=== PATIENT | male | born 1975 | race Two or more races ===

== ENCOUNTER 2022-08-25 10:55 | Emergency (ER) | payer OTHER ==
[~2022-08-25] VITALS: Ht 190.5 cm; Wt 122.0 kg
--- NOTE | 2022-08-25 11:00 | NUR ---
BIB [facility] IN A SITTING POSITION, LEFT FLANK PAIN SINCE YESTERDAY, BLOODY STOOL THIS MORNING. PLACED ON BED, AAOX4, IN PAIN 10/10 PS
[2022-08-25] MEDS ORDERED: ACETAMINOPHEN ES 500 MG TABLET ONE (11:29)
[2022-08-25] MEDS ORDERED: KETOROLAC TROMETHAMINE INJ 30 MG/ML VIAL ONE (11:29)
[2022-08-25] MEDS ORDERED: KETOROLAC TROMETHAMINE INJ 60 MG/2 ML VIAL IM ONE (11:30)
[2022-08-25] MEDS ORDERED: ACETAMINOPHEN ES 500 MG TABLET PO ONE (11:30)
--- NOTE | 2022-08-25 11:45 | NUR ---
GALVANIZER ZINC AT BEDSIDE
[2022-08-25 11:48] LABS: BASOPHILS # (AUTO) 0.1 K/uL (0.0-0.2); BASOPHILS % (AUTO) 0.6 % (0.0-2.0); EOSINOPHILS % (AUTO) 2.3 % (0.0-6.0); HEMATOCRIT 45 % (39-51); HEMOGLOBIN 15.7 g/dL (13.5-17.5); LYMPHOCYTES # (AUTO) 1.2 K/uL (0.8-4.8); LYMPHOCYTES % (AUTO) 13.4 % (20.0-44.0); MEAN CORPUSCULAR HGB CONC 35 g/dl (31.0-36.0); MEAN CORPUSCULAR VOLUME 95 fL (80-96); MONOCYTES # (AUTO) 0.5 K/uL (0.1-1.30); NEUTROPHILS # (AUTO) 7.2 K/uL (1.8-8.9); NEUTROPHILS % (AUTO) 78.7 % (43.0-81.0); PLATELET COUNT (AUTO) 267 K/uL (150-450); RED BLOOD CELL COUNT(AUTO) 4.77 MIL/uL (4.5-6.0); WHITE BLOOD COUNT (AUTO) 9.2 K/uL (4.3-11.0)
[2022-08-25 11:56] LABS: CREATININE 1.2 mg/dL (0.6-1.3); POTASSIUM 3.7 mmol/L (3.5-5.1)
[2022-08-25] MEDS ORDERED: MORPHINE SULFATE INJ 2 MG/ML DISP.SYRIN ONE (11:58)
[2022-08-25] MEDS ORDERED: MORPHINE SULFATE INJ 2 MG/ML DISP.SYRIN IV ONE (12:00)
[2022-08-25 12:02] LABS: ALBUMIN 3.7 g/dL (3.4-5.0); BILIRUBIN,DIRECT 0.2 mg/dL (0.0-0.2); BILIRUBIN,TOTAL 0.8 mg/dL (0.2-1.0); TOTAL PROTEIN, SERUM 7.5 g/dL (6.4-8.2)
--- NOTE | 2022-08-25 12:03 | NUR ---
PATIENT TAKEN TO CT VIA [facility]
[2022-08-25 12:27] LABS: BILIRUBIN,URINE SMALL (NEGATIVE); COLOR,URINE YELLOW (YELLOW); LEUKOCYTE ESTERASE ,URINE NEGATIVE (NEGATIVE); NITRITE, URINE NEGATIVE (NEGATIVE); PROTEIN,URINE TRACE mg/dl (NEGATIVE); UGLUCOSE NEGATIVE (NEGATIVE); UROBILINOGEN,URINE 0.2 EU/dL (0.2)
[2022-08-25 13:33] LABS: BACTERIA,URINE Few /HPF (None Seen); SQUAMOUS EPITHELIAL CELL,UR None Seen /HPF (None Seen); URIC ACID CRYSTALS,URINE Few /HPF (None Seen); URINE AMORPHOUS URATE Many /HPF (None Seen); WBC,URINE NONE SEEN /HPF (0-3)
[2022-08-25] MEDS ORDERED: MAGN296S72 PO (14:33)
[2022-08-25] MEDS ORDERED: HYDR-4303 PO (14:33)
--- NOTE | 2022-08-25 14:35 | NUR ---
IV removed. Catheter intact and site benign. Pressure and 4x4 applied to site. No bleeding noted.Patient discharged to home in stable condition. Written and verbal after care instructions given. Patient verbalizes understanding of instruction.
[2022-08-25 14:36] VITALS: BP 137/82
[2022-08-26] MEDS ORDERED: HYDR-4303 PO (20:53)
[2022-08-26] MEDS ORDERED: ONDA4TAB5 PO (20:53)
== END 2022-08-25 14:35 | disposition home or self-care (01) ==
LOC: ER 11:04
DX: K63.89 Other specified diseases of intestine (principal); I10 Essential (primary) hypertension; Z60.2 Problems related to living alone; Z79.899 Other long term (current) drug therapy
CPT/HCPCS: 99284; 74176; 96374; 85025; 80048; 83690; 80076; 81001; 36415; 96372; J1885; J2270

== ENCOUNTER 2022-08-26 16:15 | Emergency (ER) | payer OTHER ==
[~2022-08-26] VITALS: Ht 190.5 cm; Wt 117.9 kg
[~2022-08-26 16:15] MED LIST: HYDR-4303 PO; MAGN296S72 PO
--- NOTE | 2022-08-26 16:43 | NUR ---
CAME IN FOR PERSISTENT LLQ PAIN, SEEN YESTERDAY FOR SAME COMPLAINT, TO ER BED 9, HOOKED TO MONITOR, CHANGED TO HOSP G[facility], WARM BLANKET PROVIDED, AWAITING MD SUH
--- NOTE | 2022-08-26 17:24 | NUR ---
DR SOLER AT BEDSIDE
[2022-08-26] MEDS ORDERED: ONDANSETRON HCL/PF 4 MG/2 ML VIAL IVP ONE (17:30)
[2022-08-26] MEDS ORDERED: MORPHINE SULFATE INJ 2 MG/ML DISP.SYRIN IV ONE (17:30)
[2022-08-26] MEDS ORDERED: IV NS 0.9% 1,000 ML BAG IV ONE (17:30)
[2022-08-26] MEDS ORDERED: ONDANSETRON HCL/PF 4 MG/2 ML VIAL ONE (17:43)
[2022-08-26] MEDS ORDERED: MORPHINE SULFATE INJ 4 MG/ML DISP.SYRIN ONE (17:44)
--- NOTE | 2022-08-26 18:01 | NUR ---
WHEELED OUT VIA RNEY FOR CT SCAN
[2022-08-26 18:05] LABS: BASOPHILS # (AUTO) 0.1 K/uL (0.0-0.2); BASOPHILS % (AUTO) 1.1 % (0.0-2.0); EOSINOPHILS % (AUTO) 2.2 % (0.0-6.0); HEMATOCRIT 47 % (39-51); HEMOGLOBIN 15.8 g/dL (13.5-17.5); LYMPHOCYTES # (AUTO) 1.5 K/uL (0.8-4.8); LYMPHOCYTES % (AUTO) 13.6 % (20.0-44.0); MEAN CORPUSCULAR HGB CONC 34 g/dl (31.0-36.0); MEAN CORPUSCULAR VOLUME 96 fL (80-96); MONOCYTES # (AUTO) 0.8 K/uL (0.1-1.30); NEUTROPHILS # (AUTO) 8.2 K/uL (1.8-8.9); NEUTROPHILS % (AUTO) 76.1 % (43.0-81.0); PLATELET COUNT (AUTO) 286 K/uL (150-450); RED BLOOD CELL COUNT(AUTO) 4.91 MIL/uL (4.5-6.0); WHITE BLOOD COUNT (AUTO) 10.8 K/uL (4.3-11.0)
[2022-08-26 18:45] LABS: ALBUMIN 3.8 g/dL (3.4-5.0); BILIRUBIN,DIRECT 0.3 mg/dL (0.0-0.2); CALCIUM, SERUM 9.2 mg/dL (8.5-10.1); POTASSIUM 3.4 mmol/L (3.5-5.1); TOTAL PROTEIN, SERUM 7.7 g/dL (6.4-8.2)
[2022-08-26 19:07] LABS: CREATININE 1.2 mg/dL (0.6-1.3)
--- NOTE | 2022-08-26 19:35 | NUR ---
UNABLE TO PROVIDE URINE AT THIS TIME.
[2022-08-26] MEDS ORDERED: KETOROLAC TROMETHAMINE INJ 30 MG/ML VIAL ONE (19:56)
[2022-08-26] MEDS ORDERED: KETOROLAC TROMETHAMINE INJ 30 MG/ML VIAL IV ONE (20:00)
--- NOTE | 2022-08-26 20:06 | NUR ---
URINE COLLECTED AND SENT TO LAB
[2022-08-26 20:21] LABS: BILIRUBIN,URINE NEGATIVE (NEGATIVE); COLOR,URINE YELLOW (YELLOW); LEUKOCYTE ESTERASE ,URINE NEGATIVE (NEGATIVE); NITRITE, URINE NEGATIVE (NEGATIVE); PH,URINE 6.5 (5.0-8.0); PROTEIN,URINE NEGATIVE (NEGATIVE); UGLUCOSE NEGATIVE (NEGATIVE)
[2022-08-26 20:31] LABS: BACTERIA,URINE None seen /HPF (None Seen); RBC,URINE 21-50 /HPF (0-2); WBC,URINE 0-2 /HPF (0-3)
[2022-08-26] MEDS ORDERED: HYDR-4303 PO (20:53)
[2022-08-26] MEDS ORDERED: ONDA4TAB5 PO (20:53)
[2022-08-26 21:07] VITALS: BP 145/90
--- NOTE | 2022-08-26 21:07 | NUR ---
Patient discharged to home in stable condition. Written and verbal after care instructions given. Patient verbalizes understanding of instruction.
== END 2022-08-26 21:08 | disposition home or self-care (01) ==
LOC: ER 16:19
DX: K63.89 Other specified diseases of intestine (principal); I10 Essential (primary) hypertension; Z60.2 Problems related to living alone; Z79.899 Other long term (current) drug therapy
CPT/HCPCS: 99285; 74177; 96374; 96375; 96361; 85025; 80048; 83690; 80076; 81001; 36415; J2270; J1885; J2405; J7030

== ENCOUNTER 2022-12-06 05:10 | Emergency (ER) | payer OTHER ==
[~2022-12-06] VITALS: Ht 190.5 cm; Wt 117.9 kg
[~2022-12-06 05:10] MED LIST changes: +ONDA4TAB5 PO
--- NOTE | 2022-12-06 06:04 | NUR ---
BIBSELF FROM HOME C/O RIGHT FLANK PAIN X 1 HR. PT A/OX4. TOLERATING R/A WELL WITH NO RESP DISTRESS. CONNECTED PT TO POX AND MONITOR. SAFETY MEASURES IN PLACE.
--- NOTE | 2022-12-06 06:05 | NUR ---
URINE COLLECTED AND SENT TO LAB
[2022-12-06] MEDS ORDERED: KETOROLAC TROMETHAMINE 15 MG/ML VIAL ONE (06:23)
[2022-12-06] MEDS ORDERED: ONDANSETRON HCL/PF 4 MG/2 ML VIAL ONE (06:23)
[2022-12-06] MEDS ORDERED: ONDANSETRON HCL/PF 4 MG/2 ML VIAL IVP ONE (06:30)
[2022-12-06] MEDS ORDERED: KETOROLAC TROMETHAMINE INJ 30 MG/ML VIAL IV ONE (06:30)
[2022-12-06] MEDS ORDERED: IV NS 0.9% 1,000 ML BAG IV ONE (06:30)
--- NOTE | 2022-12-06 06:37 | NUR ---
RAC #20G S/L BLOOD COLLECTED AND SENT TO LAB
--- NOTE | 2022-12-06 06:41 | NUR ---
PT TAKEN TO CT VIA [facility]
--- NOTE | 2022-12-06 06:55 | NUR ---
PT RETURNED TO ER BED [address]
[2022-12-06 07:02] LABS: BILIRUBIN,URINE NEGATIVE (NEGATIVE); COLOR,URINE YELLOW (YELLOW); LEUKOCYTE ESTERASE ,URINE NEGATIVE (NEGATIVE); NITRITE, URINE NEGATIVE (NEGATIVE); PH,URINE 5.5 (5.0-8.0); PROTEIN,URINE NEGATIVE (NEGATIVE); UGLUCOSE NEGATIVE (NEGATIVE); UROBILINOGEN,URINE 0.2 EU/dL (0.2)
[2022-12-06 07:17] LABS: CALCIUM, SERUM 9.2 mg/dL (8.5-10.1); CREATININE 0.9 mg/dL (0.6-1.3); POTASSIUM 3.7 mmol/L (3.5-5.1)
[2022-12-06 07:19] LABS: BASOPHILS # (AUTO) 0.1 K/uL (0.0-0.2); BASOPHILS % (AUTO) 0.9 % (0.0-2.0); EOSINOPHILS % (AUTO) 2.4 % (0.0-6.0); HEMATOCRIT 48 % (39-51); HEMOGLOBIN 16.2 g/dL (13.5-17.5); LYMPHOCYTES # (AUTO) 1.9 K/uL (0.8-4.8); LYMPHOCYTES % (AUTO) 17.7 % (20.0-44.0); MEAN CORPUSCULAR HGB CONC 34 g/dl (31.0-36.0); MEAN CORPUSCULAR VOLUME 96 fL (80-96); MONOCYTES % (AUTO) 8.7 % (2.0-12.0); NEUTROPHILS # (AUTO) 7.7 K/uL (1.8-8.9); NEUTROPHILS % (AUTO) 70.3 % (43.0-81.0); PLATELET COUNT (AUTO) 275 K/uL (150-450); RED BLOOD CELL COUNT(AUTO) 5.02 MIL/uL (4.5-6.0); WHITE BLOOD COUNT (AUTO) 10.9 K/uL (4.3-11.0)
[2022-12-06 07:25] LABS: ALBUMIN 3.7 g/dL (3.4-5.0); BILIRUBIN,DIRECT 0.2 mg/dL (0.0-0.2); BILIRUBIN,TOTAL 0.4 mg/dL (0.2-1.0); TOTAL PROTEIN, SERUM 8.3 g/dL (6.4-8.2)
[2022-12-06] MEDS ORDERED: FENTANYL PF 100MCG/2ML AMPUL ONE (07:27)
[2022-12-06] MEDS ORDERED: FENTANYL PF 100MCG/2ML AMPUL IV ONE (07:30)
[2022-12-06 07:47] LABS: BACTERIA,URINE Rare /HPF (None Seen); SQUAMOUS EPITHELIAL CELL,UR Few /HPF (None Seen); WBC,URINE 0-2 /HPF (0-3)
[2022-12-06] MEDS ORDERED: HYDR-4209 PO (08:49)
[2022-12-06] MEDS ORDERED: TAMS-12 PO (08:49)
[2022-12-06] MEDS ORDERED: IBUP-1955 PO (08:49)
[2022-12-06] MEDS ORDERED: ONDA4TAB5 PO (08:49)
[2022-12-06 09:08] VITALS: BP 155/71
--- NOTE | 2022-12-06 09:09 | NUR ---
Patient discharged to home in stable condition. Written and verbal after care instructions given. Patient verbalizes understanding of instruction.IV removed. Catheter intact and site benign. Pressure and 4x4 applied to site. No bleeding noted.
== END 2022-12-06 09:09 | disposition home or self-care (01) ==
LOC: ER 05:13
DX: S22.088A Other fracture of T11-T12 vertebra, initial encounter for closed fracture (principal); N20.0 Calculus of kidney; I10 Essential (primary) hypertension; R10.31 Right lower quadrant pain; R11.2 Nausea with vomiting, unspecified; R31.9 Hematuria, unspecified; K44.9 Diaphragmatic hernia without obstruction or gangrene; K59.00 Constipation, unspecified; E88.89 Other specified metabolic disorders; R74.01 Elevation of levels of liver transaminase levels; Z87.442 Personal history of urinary calculi; Z60.2 Problems related to living alone; Z79.899 Other long term (current) drug therapy; X58.XXXA Exposure to other specified factors, initial encounter; Y93.89 Activity, other specified; Y92.89 Other specified places as the place of occurrence of the external cause; Y99.8 Other external cause status
CPT/HCPCS: 99285; 74176; 96374; 96375; 96361; 85025; 80048; 83690; 80076; 81001; 36415; J3010; J2405; J7030; J1885

== ENCOUNTER 2024-02-03 07:57 | Emergency (ER) | payer OTHER ==
[~2024-02-03] VITALS: Ht 188 cm; Wt 118.4 kg
[~2024-02-03 07:57] MED LIST changes: +AMOX-430 PO; +HYDR-4209 PO; +IBUP-1955 PO; +TAMS-12 PO
[2024-02-03] MEDS ORDERED: ONDANSETRON HCL/PF 4 MG/2 ML VIAL ONE (08:48)
[2024-02-03] MEDS ORDERED: MORPHINE SULFATE INJ 4 MG/ML DISP.SYRIN ONE (08:49)
[2024-02-03] MEDS ORDERED: ASPIRIN 81 MG TAB.CHEW ONE (08:49)
[2024-02-03 08:55] LABS: BASOPHILS % (AUTO) 0.6 % (0.0-2.0); CALCIUM, SERUM 8.7 mg/dL (8.5-10.1); CARBON DIOXIDE 30 mmol/L (21-32); CHLORIDE 104 mmol/L (98-107); CREATININE 0.8 mg/dL (0.6-1.3); EOSINOPHILS # (AUTO) 0.2 K/uL (0.0-0.7); EOSINOPHILS % (AUTO) 3.4 % (0.0-6.0); GLUCOSE 130 mg/dL (74-106); HEMATOCRIT 42 % (39-51); HEMOGLOBIN 14.3 g/dL (13.5-17.5); LYMPHOCYTES # (AUTO) 1.7 K/uL (0.8-4.8); LYMPHOCYTES % (AUTO) 24.3 % (20.0-44.0); MEAN CORPUSCULAR HEMOGLOBIN 32 PG (26.0-33.0); MEAN CORPUSCULAR HGB CONC 34 g/dl (31.0-36.0); MEAN CORPUSCULAR VOLUME 94 fL (80-96); MONOCYTES # (AUTO) 0.6 K/uL (0.1-1.30); MONOCYTES % (AUTO) 8.3 % (2.0-12.0); NEUTROPHILS # (AUTO) 4.3 K/uL (1.8-8.9); NEUTROPHILS % (AUTO) 63.4 % (43.0-81.0); PLATELET COUNT (AUTO) 143 K/uL (150-450); POTASSIUM 4.2 mmol/L (3.5-5.1); SODIUM SERUM 138 mmol/L (136-145); UREA NITROGEN, BLOOD 12 mg/dL (7-18); WHITE BLOOD COUNT (AUTO) 6.8 K/uL (4.3-11.0)
[2024-02-03] MEDS: ASPIRIN EC 81 MG TABLET.DR PO ONE (08:56)
[2024-02-03] MEDS: ONDANSETRON HCL/PF 4 MG/2 ML VIAL IVP ONE (08:56)
[2024-02-03] MEDS: MORPHINE SULFATE INJ 2 MG/ML DISP.SYRIN IV ONE (08:56)
[2024-02-03] MEDS ORDERED: IV NS 0.9% 250 ML IV ONE (09:10)
[2024-02-03] MEDS ORDERED: IOHEXOL-350 100 ML VIAL IV ONE (09:10)
[2024-02-03] MEDS ORDERED: KETOROLAC TROMETHAMINE INJ 30 MG/ML VIAL ONE (10:28)
[2024-02-03] MEDS: KETOROLAC TROMETHAMINE INJ 30 MG/ML VIAL IV ONE (10:32)
[2024-02-03] MEDS ORDERED: IBUP-1953 PO (10:41)
[2024-02-03] MEDS ORDERED: METH-647 PO (10:41)
[2024-02-03 10:51] VITALS: BP 134/88; TEMP 98; O2SAT 100
== END 2024-02-03 10:51 | disposition home or self-care (01) ==
LOC: ER 08:05
DX: R07.89 Other chest pain (principal); I10 Essential (primary) hypertension; Z79.899 Other long term (current) drug therapy; Z87.442 Personal history of urinary calculi
CPT/HCPCS: 99285; 96374; 71275; 71045; 96375 ×2; 93005 ×2; 85025; 80048; 85378; 36415; 84484 ×2; J2270; J1885; J2405; J7050; Q9967

== ENCOUNTER 2024-02-17 22:54 | Emergency (ER) | payer OTHER ==
[~2024-02-17] VITALS: Ht 190.5 cm; Wt 120.2 kg
[~2024-02-17 22:54] MED LIST changes: +IBUP-1953 PO; +METH-647 PO
[2024-02-17 23:59] LABS: BASOPHILS # (AUTO) 0.1 K/uL (0.0-0.2); EOSINOPHILS # (AUTO) 0.2 K/uL (0.0-0.7); EOSINOPHILS % (AUTO) 1.6 % (0.0-6.0); HEMATOCRIT 42 % (39-51); HEMOGLOBIN 14.2 g/dL (13.5-17.5); LYMPHOCYTES # (AUTO) 1.8 K/uL (0.8-4.8); LYMPHOCYTES % (AUTO) 17.4 % (20.0-44.0); MEAN CORPUSCULAR HEMOGLOBIN 32 PG (26.0-33.0); MEAN CORPUSCULAR HGB CONC 34 g/dl (31.0-36.0); MEAN CORPUSCULAR VOLUME 95 fL (80-96); MONOCYTES # (AUTO) 0.7 K/uL (0.1-1.30); MONOCYTES % (AUTO) 6.5 % (2.0-12.0); NEUTROPHILS # (AUTO) 7.5 K/uL (1.8-8.9); NEUTROPHILS % (AUTO) 73.5 % (43.0-81.0); PLATELET COUNT (AUTO) 206 K/uL (150-450); RED BLOOD CELL COUNT(AUTO) 4.45 MIL/uL (4.5-6.0); RED CELL DISTRIBUTION WIDTH 15.3 % (11.5-15.0); WHITE BLOOD COUNT (AUTO) 10.2 K/uL (4.3-11.0)
[2024-02-18] LABS: APPEARANCE,URINE CLEAR (CLEAR); BILIRUBIN,URINE NEGATIVE (NEGATIVE); BLOOD, URINE NEGATIVE Ery/uL (NEGATIVE); COLOR,URINE YELLOW (YELLOW); KETONES,URINE NEGATIVE (NEGATIVE); LEUKOCYTE ESTERASE ,URINE NEGATIVE (NEGATIVE); NITRITE, URINE NEGATIVE (NEGATIVE); PROTEIN,URINE NEGATIVE (NEGATIVE); UGLUCOSE NEGATIVE (NEGATIVE)
[2024-02-18 00:07] LABS: CARBON DIOXIDE 29 mmol/L (21-32); CHLORIDE 101 mmol/L (98-107); GLUCOSE 113 mg/dL (74-106); POTASSIUM 4.3 mmol/L (3.5-5.1); SODIUM SERUM 135 mmol/L (136-145); UREA NITROGEN, BLOOD 10 mg/dL (7-18)
[2024-02-18 00:09] LABS: AMPHETAMINE, URINE NEGATIVE (NEGATIVE); BARBITURATE, URINE NEGATIVE (NEGATIVE); BENZODIAZEPINE, URINE NEGATIVE (NEGATIVE); CANNABINOID, URINE POSITIVE (NEGATIVE); COCCAINE, URINE NEGATIVE (NEGATIVE); OPIATE, URINE NEGATIVE (NEGATIVE); PHENCYCLIDINE SCREEN,URINE NEGATIVE (NEGATIVE)
[2024-02-18 00:19] LABS: ALANINE AMINOTRANSFERASE 68 U/L (12-78); ALBUMIN 3.5 g/dL (3.4-5.0); ALCOHOL, BLOOD < 3 mg/dL (0-10); ALKALINE PHOSPHATASE 90 U/L (46-116); ASPARTATE AMINOTRANSFERASE 71 U/L (15-37); NT-PRO BNP 13 pg/mL (0-125)
[2024-02-18] MEDS ORDERED: KETOROLAC TROMETHAMINE INJ 30 MG/ML VIAL ONE (00:57)
[2024-02-18] MEDS: KETOROLAC TROMETHAMINE INJ 60 MG/2 ML VIAL IM ONE (00:58)
[2024-02-18 03:22] VITALS: BP 136/78; TEMP 98.2; O2SAT 98
== END 2024-02-18 03:22 | disposition home or self-care (01) ==
LOC: ER 22:57
DX: R07.89 Other chest pain (principal); I10 Essential (primary) hypertension; R51.9 Headache, unspecified; Z79.899 Other long term (current) drug therapy; Z60.2 Problems related to living alone
CPT/HCPCS: 99285; 93005; 71045; 71250; 70450; 85025; 85378; 81003; 36415 ×2; 80053; 84484 ×2; 83880; 80320; 80307; 96372; J1885; G0480

== ENCOUNTER 2025-06-22 11:56 | Inpatient (IN) | payer OTHER ==
[~2025-06-22] VITALS: Ht 190.5 cm; Wt 123.8 kg
[2025-06-22 12:29] LABS: PLATELET COUNT (AUTO) 125 K/uL (150-450); RED BLOOD CELL COUNT(AUTO) 4.22 MIL/uL (4.5-6.0); RED CELL DISTRIBUTION WIDTH 14.9 % (11.5-15.0); WHITE BLOOD COUNT (AUTO) 7.9 K/uL (4.3-11.0)
[2025-06-22 12:53] LABS: INR 1.42 (0.91-1.10)
[2025-06-22 12:58] LABS: SERUM AMMONIA 15 umol/L (11-32)
[2025-06-22 13:06] LABS: ASPARTATE AMINOTRANSFERASE 110 U/L (15-37); CALCIUM, SERUM 8.7 mg/dL (8.5-10.1); CREATININE 0.9 mg/dL (0.6-1.3); SODIUM SERUM 138 mmol/L (136-145); TOTAL PROTEIN, SERUM 8.2 g/dL (6.4-8.2); UREA NITROGEN, BLOOD 10 mg/dL (7-18)
[2025-06-22 13:23] LABS: LACTIC ACID 2.2 mmol/L (0.4-2.0)
[2025-06-22 13:48] LABS: AMPHETAMINE, URINE NEGATIVE (NEGATIVE); BARBITURATE, URINE NEGATIVE (NEGATIVE); COCCAINE, URINE NEGATIVE (NEGATIVE); OPIATE, URINE NEGATIVE (NEGATIVE)
[2025-06-22 13:49] LABS: BENZODIAZEPINE, URINE POSITIVE (NEGATIVE); CANNABINOID, URINE POSITIVE (NEGATIVE)
[2025-06-22] MEDS ORDERED: Z GUARD REMEDY 4 OZ OINT TP PRN (14:30)
[2025-06-22] MEDS ORDERED: ONDANSETRON HCL/PF 4 MG/2 ML VIAL IVP PRN (14:30)
[2025-06-22] MEDS: ACETAMINOPHEN 325 MG TABLET PO PRN (17:50)
[2025-06-22] MEDS: IV D5/0.45 NACL 1,000 ML IV PRN (17:50)
[2025-06-22 20:00] VITALS: BP 119/66; TEMP 98.2; O2SAT 97
[2025-06-23] VITALS: BP 107/62; TEMP 98.2; O2SAT 94
[2025-06-23] MEDS: MAG HYDROX/AL HYDROX/SIMETH 30 ML UDC PO PRN (02:07)
[2025-06-23 04:00] VITALS: BP 112/65; TEMP 98.1; O2SAT 94
[2025-06-23] MEDS: MAG HYDROX/AL HYDROX/SIMETH 30 ML UDC PO ONE (05:56)
[2025-06-23] MEDS: BISMUTH SUBSALICYLATE 262 MG/15 ML BOTTLE PO ONE (05:56)
[2025-06-23 06:18] LABS: CALCIUM, SERUM 8.0 mg/dL (8.5-10.1); CREATININE 0.7 mg/dL (0.6-1.3); PLATELET COUNT (AUTO) 115 K/uL (150-450); RED BLOOD CELL COUNT(AUTO) 4.04 MIL/uL (4.5-6.0); RED CELL DISTRIBUTION WIDTH 14.9 % (11.5-15.0); SODIUM SERUM 139.0 mmol/L (136-145); UREA NITROGEN, BLOOD 10.0 mg/dL (7-18); WHITE BLOOD COUNT (AUTO) 7.4 K/uL (4.3-11.0)
[2025-06-23] MEDS: PANTOPRAZOLE 40 MG TABLET.DR PO SCH (07:27)
[2025-06-23 08:00] VITALS: BP 118/88; TEMP 97.7; O2SAT 95
[2025-06-23] MEDS: POTASSIUM CHLORIDE 20 MEQ TAB.PRT.SR PO SCH (09:40)
[2025-06-23] MEDS: METOPROLOL TARTRATE 50 MG TABLET PO SCH (09:40)
[2025-06-23 09:59] LABS: PHOSPHORUS 3.3 mg/dL (2.5-4.9)
[2025-06-23 10:10] LABS: LDL 123.0 mg/dL (0-99)
[2025-06-23 12:00] VITALS: BP 120/81; TEMP 97.5; O2SAT 91
[2025-06-23] MEDS: LIDOCAINE 5% (PATCH) 1 EA PATCH TP SCH (12:52)
[2025-06-23] MEDS ORDERED: IV NS 0.9% 250 ML IV ONE (15:10)
[2025-06-23] MEDS ORDERED: IOHEXOL-350 100 ML VIAL IV ONE (15:10)
[2025-06-23] MEDS ORDERED: METOPROLOL TARTRATE INJ 5 MG/5 ML AMPUL ONE (15:39)
[2025-06-23] MEDS ORDERED: NITROGLYCERIN 0.4 MG/TAB BOTTLE ONE (15:39)
[2025-06-23] MEDS: METOPROLOL TARTRATE INJ 5 MG/5 ML AMPUL IVP PRN (15:40)
[2025-06-23] MEDS: NITROGLYCERIN 0.4 MG/TAB BOTTLE SL ONE (15:45)
[2025-06-23 16:00] VITALS: BP 103/70; TEMP 97.7; O2SAT 94
[2025-06-23 20:00] VITALS: BP 111/75; TEMP 97.7; O2SAT 94
[2025-06-23] MEDS: ZOLPIDEM TARTRATE 5 MG TABLET PO PRN (22:27)
[2025-06-23] MEDS: MAGNESIUM HYDROXIDE 30 ML UDC PO PRN (22:35)
[2025-06-24] VITALS: BP 104/68; TEMP 97.9; O2SAT 91
[2025-06-24 06:00] VITALS: BP 112/84; TEMP 97.9; O2SAT 92
[2025-06-24] MEDS ORDERED: METO50TA16 PO (10:35)
== END 2025-06-24 08:32 | disposition left against medical advice (07) | DRG 203 ==
LOC: ER 12:16 → TELE1 15:50
PROVIDERS: ATTEND Nurse Practitioner Acute Care
DX: M94.0 Chondrocostal junction syndrome [Tietze] (principal); E87.20 Acidosis, unspecified; K76.6 Portal hypertension; E88.09 Other disorders of plasma-protein metabolism, not elsewhere classified; I10 Essential (primary) hypertension; E11.9 Type 2 diabetes mellitus without complications; Z87.442 Personal history of urinary calculi; Z59.00 Homelessness unspecified; R47.81 Slurred speech; E80.6 Other disorders of bilirubin metabolism; F10.21 Alcohol dependence, in remission; E87.6 Hypokalemia; K70.30 Alcoholic cirrhosis of liver without ascites; R82.998 Other abnormal findings in urine
CPT/HCPCS: 36415; 70450-TC; 71045-TC; 75574; 80048-TC; 80061-TC; 80076-TC; 82140-TC; 82962-TC; 83605-TC; 84100-TC; 84439-TC; 84443-TC; 84484-TC; 85025-TC; 85730-TC; 92526; 92611-TC; 93307-TC; 97110-TC; 97116-TC; 97530-TC; A4223; G0378; G0480; J3490; J7050; Q9967